=== PATIENT | male | born 1995 | race Caucasian/White ===

== ENCOUNTER → 2016-09-12 | Outpatient (CLI) | payer OTHER ==
[~2016-09-12] MED LIST: GADOBUTROL 10 MMOL/10 ML VIAL IV ONE; OXYC-323 PO
--- NOTE | 2016-09-12 12:42 | KCIC ---
BRAIN WO/W CONTRAST Indication: Reason For Study Reason: HEADACHES/PASSING OUT / Spl. Instructions: 8cc Gadavist / History: New onset of BERNARD's, vision loss, syncope and collapse. No head trauma. COMPARISON: None TECHNIQUE: Axial diffusion weighted imaging was obtained. Additional sagittal T1, axial T1, axial FLAIR, and axial T2 weighted imaging of the brain was also performed. Postcontrast T1 weighted imaging was also performed after intravenous administration of gadolinium based contrast. FINDINGS: No abnormal signal within the brain parenchyma. No abnormal intracranial enhancement. No evidence of acute intracranial hemorrhage. No restricted diffusion to indicate acute infarct. No extra-axial fluid collections. No midline shift or mass effect. Ventricular size is appropriate. Midline structures have a normal anatomic configuration. Pituitary gland and infundibulum are unremarkable. Basal cisterns are patent. Arterial flow voids at the skull base and major dural venous sinuses are maintained. Globes and orbits are unremarkable. There is complete opacification of the left frontal sinus. IMPRESSION: - No acute intracranial abnormality. No abnormal enhancement or mass. - There is complete opacification of the left frontal sinus. Correlate for clinical signs and symptoms of sinusitis. Electronically signed by: Fidel Mon (Sep 12, 2016 12:41:22)
== END | disposition home or self-care (01) ==
LOC: KCIC MRI 09:48
PROVIDERS: ATTEND Family Medicine
DX: J32.1 Chronic frontal sinusitis (principal)
CPT/HCPCS: 70553; A9585